=== PATIENT | female | born 1955 | race Two or more races ===

== ENCOUNTER 2024-07-04 23:43 | Emergency (ER) | payer OTHER ==
[~2024-07-04] VITALS: Ht 160 cm; Wt 106.5 kg
[2024-07-05 00:22] LABS: Urine Bacteria None Seen /hpf (None Seen)
[2024-07-05 01:02] LABS: Urine Blood Negative /uL (Negative); Urine Budding Yeast OCCASIONAL /hpf (None Seen); Urine Clarity Clear (Clear); Urine Protein, UAD TRACE (Negative); Urine Specific Gravity 1.013 (1.001-1.035); Urine Urobilinogen Normal (Negative); Urine WBC 20 /hpf (0 - 5); Urine pH 5.5 (5.0-9.0)
[2024-07-05 01:23] LABS: Urine Color STRAW (Yellow)
--- NOTE | 2024-07-05 01:58 | DVH ---
CLINICAL HISTORY: Right flank pain TECHNIQUE: CT of the abdomen and pelvis was performed without intravenous contrast. This exam was per formed according to our departmental dose optimization program. Up-to-date CT equipment and radiation dose reduction techniques are utilized as appropriate. [[employer] Exposure Report] WID: COMPARISON: None FINDINGS: Lower Thorax: Linear bibasilar scarring or atelectasis. There is a cluster of tree-in-bud opacities i n the visualized right upper lobe on series 3, image 1. Normal-sized heart. Liver and Biliary system: Mild hepatomegaly measuring 21 cm craniocaudal. Prior cholecystectomy with mild choledocho ectasia with the common bile duct measuring 1.4 cm. No intrahepatic bile duct dilata tion. Grossly normal unopacified liver. Spleen: Unremarkable. Adrenal Glands and Kidneys: Normal adrenal glands. There is no hydronephrosis or nephrolithiasis Pancreas and Retroperitoneum: Fatty atrophy / infiltration of the pancreas. There is no retroperitone al lymphadenopathy Aorta and Major Vessels: Aortoiliac vessels are normal in caliber containing mild calcified atheroscl erotic plaque Bowel, Mesentery and Peritoneal space: The small and large bowel loops are normal in caliber. There i s moderate distal colonic diverticulosis. There is no free air or fluid collection. Pelvis: Mild bladder wall thickening. The uterus and ovaries are grossly unremarkable for patient age . There is no pelvic lymphadenopathy Abdominal wall and Osseous Structures: Small fat containing umbilical hernia. There is bony demineral ization. multilevel lower thoracic and lumbar spondylosis. There is interspinous hardware at L4-L5 an d L5-S1. Grade 1 anterolisthesis at L5-S1. No destructive osseous lesion. IMPRESSION: 1. No hydronephrosis or nephrolithiasis. 2. Mild bladder wall thickening , nonspecific . Correlate with urinalysis if there is clinical boone rn for cystitis . 3. Small cluster of tree-in-bud opacities in the visualized right upper lobe likely atypical infectio n. 4. Mild hepatomegaly. 5. Moderate distal colonic diverticulosis
[2024-07-05] MEDS ORDERED: BACDST PO (02:17)
[2024-07-05] MEDS ORDERED: ACET500T58 PO (02:17)
--- NOTE | 2024-07-05 02:17 | ED.PDOC ---
GI ASSESSMENT HPI Comments This patient is a pleasant 68-year-old female who arrives to the ED today with complaints of right-sided flank pain and central epigastric pain concerns for several weeks. Patient states that the abdominal pain concerns have been for nearly a year. Patient was seen at [facility] yesterday and was diagnosed with a urinary tract infection. Patient states that when she got to the pharmacy, the pharmacist told her that her insurance would not pay for that medication. Patient has not followed up with the primary care provider nor has she seen a technical specialist cytology. Patient states the symptoms come for couple of days and then go for some time. patient denies any fever but states intermittent nausea and vomiting. Patient was hypertensive on arrival. Chief Complaint: Flank Pain Time Seen by MD: 23:49 Reviewed Notes: Nurses Notes Allergies: Coded Allergies: NO KNOWN ALLERGIES (Unverified , 07/05/24) Information Source: Patient, Friend Mode of Arrival: Ambulatory Timing: Weeks Duration: Intermittent Prehospital treatment: None Quality: Aching, Cramping Vomitus: None Severity: Moderate Recent: None Recent Hx of: Other Pain Location: Diffuse, Epigastric Associated sign and symptoms: Nausea, Vomiting, Abdominal Pain Past Medical History PAST MEDICAL HISTORY: Denies Surgical History: Denies all surgeries SEGMENT ASSEMBLER History: No Pertinent SEGMENT ASSEMBLER History Family History Family History: Reviewed,noncontributory to illness, No family hx of Cancer, No family hx of DM, No family hx of Heart mary, No family hx of HTN, No family hx ofKidney mary, No family hx of Liver mary, No family hx of Lung mary, No family hx of Stroke Social History Smoker: Non-Smoker Alcohol: Denies ETOH Use Drugs: Denies Drug Use Lives In: Home Constitutional: denies: chills, diaphoresis, fatigue, fever, malaise, sweats, weakness, others EENTM: denies: blurred vision, double vision, ear bleeding, ear discharge, ear drainage, ear pain, ear ringing, eye pain, eye redness, hearing loss, mouth pain, mouth swelling, nasal discharge, nose bleeding, nose congestion, nose pain, photophobia, tearing, throat pain, throat swelling, voice changes, others Respiratory: denies: cough, hemoptysis, orthopnea, SOB at rest, shortness of breath, SOB with excertion, stridor, wheezing, others Cardiovascular: denies: chest pain, dizzy spells, diaphoresis, Dyspnea on exertion, edema, irregular heart beat, left arm pain, lightheadedness, palpitations, PND, syncope, others Gastrointestinal: reports: abdominal pain; denies: abdomen distended, blood streaked bowels, constipated, diarrhea, dysphagia, difficulty swallowing, hematemesis, melena, nausea, poor appetite, poor fluid intake, rectal bleeding, rectal pain, vomiting, others Genitourinary: reports: flank pain; denies: abnormal vagina bleeding, burning, dyspareunia, dysuria, frequency, hematuria, incontinence, pain, , vagina discharge, urgency, others Neurological: denies: dizziness, fainting, headache, left sided numbness, left sided weakness, numbness, paresthesia, pre-existing deficit, right sided numbness, right sided weakness, seizure, speech problems, tingling, tremors, weakness, others Musculoskeletal: denies: back pain, gout, joint pain, joint swelling, muscle pain, muscle stiffness, neck pain, others Integumetry: denies: bruises, change in color, change in hair/nails, dryness, laceration, lesions, lumps, rash, wounds, others Allergic/Immunocompromised: denies: Difficulty Healing, Frequent Infections, Hives, Itching, others Hematologic/Lymphatic: denies: anemia, blood clots, easy bleeding, easy bruising, swollen glands, others Endocrine: denies: excessive hunger, excessive sweating, excessive thirst, excessive urination, flushing, intolerance to cold, intolerance to heat, unexplained weight gain, unexplained weight loss, others Psychiatric: denies: anxiety, bipolar disorder, depression, hopeless, panic disorder, schizophrenia, sleepless, suicidal, others Physical Exam General Appearance: Moderate Distress (Patient presents as a moderately ill 68-year-old female.), Normal HEENT: Normal ENT Inspection, Pharynx Normal, TMs Normal Neck: Full Range of Motion, Non-Tender, Normal, Normal Inspection Respiratory: Chest Non-Tender, Lungs Clear, No Accessory Muscle Use, No Respiratory Distress, Normal Breath Sounds Cardiovascular: No Edema, No JVD, No Murmur, No Gallop, Normal Peripheral Pulses, Regular Rate/Rhythm Breast Exam: Deferred Gastrointestinal: Other (Right-sided flank pain radiating towards the right- sided lower abdomen. No signs of trauma. No pulsatile masses.) Genitalia: Deferred Pelvic: Deferred Rectal: Deferred Extremities: No calf tenderness, Normal capillary refill, Normal inspection, Normal range of motion, Non-tender, No pedal edema Neurologic: Alert, philosophy specialist II-XII nml as Tested, No Motor Deficits, Normal Affect, Normal Mood, No Sensory Deficits Cerebellar Function: Normal Reflexes: Normal Skin: Dry, Normal Color, Warm Lymphatic: No Adenopathy Was a procedure done? Was a procedure done?: No GI differential Dx Differential Diagnosis: UTI, Other (Pyelonephritis, musculoskeletal strain,) X-Ray, Labs, Meds, VS Vital Signs Date Time Temp Pulse Resp B/P (MAP) Pulse Ox O2 Delivery O2 Flow Rate FiO2 07/05/24 00:21 98.5 84 20 186/73 (110) 98 Lab Test 07/05/24 00:00 Range/Units Urine Color Straw Yellow Urine Clarity Clear Clear Urine pH 5.5 5.0-9.0 Urine Specific [place] 1.013 1.001-1.035 Urine Protein Trace H Negative Urine Ketones Negative Negative Urine Blood Negative Negative /uL Urine Nitrite Negative Negative Urine Bilirubin Negative Negative Urine Urobilinogen Normal Negative mg/dL Urine Leukocyte Esterase 2+ Negative /uL Urine RBC <1 0 - 4 /hpf Urine WBC 20 0 - 5 /hpf Urine Squamous Epithelial Cells Few <5 /hpf Urine Bacteria None seen None Seen /hpf Urine Yeast (Budding) Occasional None Seen /hpf Urine Glucose 4+ H Normal mg/dL X-Ray, Labs, Meds, VS Comment Patient had relief of symptoms status post medication dispensed. Advised patient that urine analysis revealed a significant UTI. Patient was given her 1st dose of antibiotics tonight prior to discharge. Advised patient utilize medication and antibiotics as directed and until completion as well as good hydration and healthy nutrition throughout illness event. Time of 1ST Reevaluation: 02:15 Reevaluation 1ST: Improved Consultation: PCP Patient Education/Counseling: Diagnosis, Treatment Family Education/Counseling: Diagnosis, Treatment Departure 1 Departure Time of Disposition: 02:15 Impression: Primary Impression: UTI (urinary tract infection) Disposition: HOME / SELF CARE / HOMELESS Condition: Stable Additional Instructions: Advised patient utilize antibiotics as directed until completion as well as additional medication as needed for symptomatic relief. Patient should practice good hydration and healthy nutrition throughout illness event. e-Prescriptions Acetaminophen (Acetaminophen) 500 Mg Tab 500 MG PO Q4HP PRN, #30 TAB Prov: MEENA CAMEJO PAC 07/05/24 Sulfamethoxazole W/Trimethopri (Bactrim Ds Tablet) 1 Tab Tb 1 TAB PO BID for 7 Days, #14 TAB Prov: MEENA CAMEJO PAC 07/05/24 Discharged With: Self, Relative (Mother) Critical Care Note Critical Care Time?: No Stability Stability form required: No Heart Score Heart Score: Heart Score Response (Comments) Value History N/A 0 EKG N/A 0 Age N/A 0 Risk Factors N/A 0 Troponin N/A 0 Total 0 MEENA CAMEJO PAC Jul 05, 2024 02:17
[2024-07-05] MEDS ORDERED: KETOROLAC TROMETH 30 MG/ML 1ML VIAL ONE (02:35)
[2024-07-05] MEDS ORDERED: SULFAMETHOX W/TRIMETH(800/160MG) DS TAB PO ONE (02:35)
[2024-07-05] MEDS ORDERED: HYDROcodone-ACET 5/325MG TAB ONE (02:36)
[2024-07-05] MEDS: SULFAMETHOX W/TRIMETH(800/160MG) DS TAB PO ONE (02:41)
[2024-07-05] MEDS: KETOROLAC TROMETH 60MG/2ML VIAL IM ONE (02:41)
[2024-07-05] MEDS: HYDROcodone-ACET 5/325MG TAB PO ONE (02:42)
[2024-07-05 02:48] VITALS: BP 151/78; PULSE 75; RESP 16; TEMP 97.6; O2SAT 97
== END 2024-07-05 02:52 | disposition home or self-care (01) ==
LOC: ER 23:43
DX: N39.0 Urinary tract infection, site not specified (principal); I10 Essential (primary) hypertension
CPT/HCPCS: 74176; 81001; 96372; 99285; J1885